=== PATIENT | male | born 1995 | race Caucasian/White ===

== ENCOUNTER 2022-07-22 11:46 | Emergency (ER) | payer OTHER ==
[2022-07-22] MEDS ORDERED: HYDROmorphone 2 MG/ML Syringe IM ONE (12:09)
[2022-07-22] MEDS ORDERED: HYDROmorphone 2 MG/ML Syringe ONE (12:19)
== END 2022-07-22 12:35 | disposition home or self-care (01) ==
LOC: SUPCPDRO 11:46 → LB.ED 11:46
DX: S30.0XXA Contusion of lower back and pelvis, initial encounter (principal); W00.9XXA Unspecified fall due to ice and snow, initial encounter
CPT/HCPCS: 72220; 96372; 99283; J1170

== ENCOUNTER 2022-08-30 12:48 | Emergency (ER) | payer SELFPAY ==
[2022-08-30 13:12] VITALS: BP 137/96; PULSE 96
[2022-08-30] MEDS ORDERED: Ketorolac 60 MG/2 ML SDV ONE (13:23)
[2022-08-30] MEDS ORDERED: Ketorolac 60 MG/2 ML SDV IM ONE (13:45)
[2022-08-30] MEDS ORDERED: traMADol 50 MG Tab ONE (14:50)
== END 2022-08-30 14:58 | disposition home or self-care (01) ==
LOC: LB.ED 12:48
DX: S52.251A Displaced comminuted fracture of shaft of ulna, right arm, initial encounter for closed fracture (principal); W00.0XXA Fall on same level due to ice and snow, initial encounter
CPT/HCPCS: 29105; 73090-RT; 99283; A9270-GY; J1885

== ENCOUNTER 2025-03-19 20:15 | Emergency (ER) | payer OTHER ==
[2025-03-19] MEDS: Diphtheria,Pertussis(Acell),Tetanus Vaccine 0.5 ML Syringe IM ONE (20:41)
[2025-03-19] MEDS: Bacitracin Oint 1 GM U/D Packet TOP ONE (21:01)
== END 2025-03-19 21:00 | disposition home or self-care (01) ==
LOC: LB.ED 20:15
DX: S61.011A Laceration without foreign body of right thumb without damage to nail, initial encounter (principal); Z23 Encounter for immunization; W26.0XXA Contact with knife, initial encounter; Y93.89 Activity, other specified
CPT/HCPCS: 12001; 90471; 90715; 99282-25; A9270-GY; J2003